=== PATIENT | female | born 1935 | race Caucasian/White ===

== ENCOUNTER 2025-01-01 18:40 | Emergency (ER) | payer OTHER ==
[~2025-01-01] VITALS: Ht 157.5 cm; Wt 99.1 kg
[2025-01-01] MEDS ORDERED: LISINOPRIL-HCT1 EACH PO (19:01)
[2025-01-01] MEDS ORDERED: SIMVASTATIN20 MG PO (19:01)
[2025-01-01] MEDS ORDERED: MONTELUKAST SOD10 MG PO (19:03)
[2025-01-01] MEDS ORDERED: ADULT LOW DOSE81 MG PO (19:04)
[2025-01-01] MEDS ORDERED: LEVOCETIRIZINE D5 MG PO (19:04)
[2025-01-01] MEDS ORDERED: CALCIUM + D3 E1 EACH PO (19:04)
[2025-01-01] MEDS ORDERED: VITAMIN B121000 MCG PO (19:05)
[2025-01-01] MEDS ORDERED: GABARONE100 MG PO (19:27)
[2025-01-01] MEDS ORDERED: HYDROCODON-ACE1 EA10 PO (19:27)
[2025-01-01] MEDS ORDERED: ACYCLOVIR800 MG PO (19:27)
[2025-01-01] MEDS ORDERED: ACYCLOVIR 400 MG TAB PO ONE (19:45)
[2025-01-01] MEDS ORDERED: HYDROCODONE BIT/ACETAMINOPHEN 5/325 MG 1 TAB HOME.PACK PO ONE (19:45)
[2025-01-01] MEDS ORDERED: GABAPENTIN 300 MG CAP PO ONE (19:45)
[2025-01-01 19:58] VITALS: BP 117/63
== END 2025-01-01 19:59 | disposition home or self-care (01) ==
LOC: ED 18:40
DX: B02.9 Zoster without complications (principal); I10 Essential (primary) hypertension; E78.5 Hyperlipidemia, unspecified; Z79.82 Long term (current) use of aspirin; Z79.899 Other long term (current) drug therapy
CPT/HCPCS: A9270